=== PATIENT | female | born 1960 | race Caucasian/White ===

== ENCOUNTER 2022-09-09 01:00 | Emergency (ER) | payer BC ==
[2022-09-09] MEDS ORDERED: Propofol 200 MG/20 ML SDV ONE (02:15)
[2022-09-09] MEDS ORDERED: Sodium Chloride 0.9% 1,000 ML IV SCH (02:45)
== END 2022-09-09 03:40 | disposition home or self-care (01) ==
LOC: JP.ED 01:00
DX: S52.532A Colles' fracture of left radius, initial encounter for closed fracture (principal); Z88.5 Allergy status to narcotic agent; W10.9XXA Fall (on) (from) unspecified stairs and steps, initial encounter
CPT/HCPCS: 25605; 73110; 76000; 99283; J2704